=== PATIENT | female | born 1985 ===

== ENCOUNTER 2024-04-10 12:32 | Outpatient (CLI) | payer OTHER ==
--- NOTE | 2024-04-11 09:14 | Ultrasound Report ---
LIMITED ULTRASOUND OF LEFT BREAST AND AXILLA: 04/10/2024 CLINICAL: Palpable left axilla lump. Comparison is made to exam dated: 04/10/2024 mammogram - [facility]. Color flow and real-time ultrasound of the left breast axilla were performed. Lomeli scale images of the real-time examination were reviewed. There are benign normal lymph nodes in the left axilla in the area of the palpable abnormality. No significant abnormalities were seen sonographically in the left axilla. IMPRESSION: BENIGN There is no sonographic evidence of malignancy. Normal lymph nodes but no mass are seen at the palpa ble area of concern. Recommend clinical follow up. A 2 year screening mammogram is recommended. This exam was interpreted at Station ID: [id number]. Electronically Signed By: Dino Barroso M.D. ar/:04/10/2024 20:12:40 letter sent: No_Letter Ultrasound BI-RADS: 2 Benign BI-RADS CATEGORY: (2) - 2 Mammogram [id number] 2 year screening LATERALITY: (B)
--- NOTE | 2024-04-11 09:14 | Mammography Report ---
BILATERAL DIGITAL DIAGNOSTIC MAMMOGRAM 3D/2D WITH EXAGGERATED CC AXILLARY TAIL SPOT COMPRESSION: 04/10 CLINICAL: Palpable left axilla lump. Baseline exam. No prior exams were available for comparison. Both breasts are extremely dense, which lowers the sensitivity of mammography (category d />75% gland ular tissue). No significant masses, calcifications, or other findings are seen in either breast. IMPRESSION: INCOMPLETE: NEEDS ADDITIONAL IMAGING EVALUATION There is no abnormality seen in the left axilla to correspond with the palpable abnormality in the le ft axilla, however, ultrasound is recommended. Based on the Tyrer Cuzick model (a risk assessment model) the patient's lifetime risk is 14.3% and he r 10 year risk is 1.5%. According to the ACR, ACS, and NCCN guidelines, an annual breast MRI exam maura ng with mammogram is recommended if the patient's lifetime risk is 20% or greater. This exam was interpreted at Station ID: [id number]. NOTE: For mammograms, a report in lay terms will be sent to the patient. Approximately 15% of breast malignancies will not be visualized mammographically. In the management of a palpable breast mass, a negative mammogram must not discourage biopsy of a clinically suspicious lesion. Electronically Signed By: Dino sol/brenda:04/10/2024 19:56:39 ACR BI-RADS Category 0: Incomplete 3340F PARENCHYMAL PATTERN: (VD) - The breast(s) demonstrate(s) extremely dense parenchyma, limiting the sen sitivity of mammography. BI-RADS CATEGORY: (0) - 0 Ultrasound [id number] Immediate follow-up LATERALITY: (L)
== END 2024-04-10 12:33 | disposition home or self-care (01) ==
LOC: DI 12:32
PROVIDERS: ATTEND Student in an Organized Health Care Education/Training Program
DX: N63.21 Unspecified lump in the left breast, upper outer quadrant (principal); R92.343 Mammographic extreme density, bilateral breasts